=== PATIENT | female | born 1965 | race Caucasian/White ===

== ENCOUNTER 2019-01-06 11:45 | Day surgery (SDC) | payer OTHER ==
[~2019-01-06 11:45] MED LIST: NACL 0.9% 1000 ML 1,000 ML IV SCH
--- NOTE | 2019-01-06 12:49 | Anesthesia Day of Surgery ---
Anesthesia Day of Surgery - Day of Surgery Patient Examined: Yes Patient H&P Reviewed: Yes Patient is NPO: Yes
--- NOTE | 2019-01-06 12:49 | Anesthesia Consultation ---
Anesthesia Consult and Med Hx Date of service: 01/06/19 - Airway Anesthetic Teeth Evaluation: Dentures ROM Head & Neck: Adequate Mental/Hyoid Distance: Adequate Mallampati Class: Class II Intubation Access Assessment: Good - Pulmonary Exam CTA: Yes - Cardiac Exam Cardiac Exam: RRR - Pre-Operative Health Status ASA Pre-Surgery Classification: ASA3 Proposed Anesthetic Plan: MAC - Endocrine Hx Cirrhosis: Yes - Additional Comments Anesthesia Medical History Comments: hx of cirrhosis
[2019-01-06] MEDS ORDERED: XYLOCAINE 1% 20 mL ONE (13:14)
[2019-01-06] MEDS ORDERED: DIPRIVAN 10 MG/ML IV ONE ×3 (13:14)
--- NOTE | 2019-01-06 13:40 | Short Stay Summary ---
Short Stay Documentation Date of service: 01/06/19 Narrative H&P: Ms Maza is a 53 yo female who presents for screening colonoscopy. - History Past Medical History: other (PBC) Past Surgical History: Other (no changes) Social history: no significant social history - Allergies and Medications Current Medications: Allergies No Known Allergies Allergy (Verified 01/05/19 16:24) Home Medications Medication Instructions Recorded Confirmed Last Taken Type Ocaliva 0.5 mg PO DAILY 01/06/19 01/06/19 01/04/19 History Ursodiol 300 mg PO TID 01/06/19 01/06/19 01/04/19 History Active Medications Sodium Chloride (Nacl 0.9% 1000 Ml) 1,000 mls @ 50 mls/hr IV DIRECT RAYSHAWN Last Admin: 01/06/19 13:06 Dose: 50 mls/hr Documented by: - Physical exam General appearance: no acute distress Lungs: Clear to auscultation Heart: Regular rate, Normal S1, Normal S2 Gastrointestinal: normal - Brief post op/procedure progress note Date of procedure: 01/06/19 Pre-op diagnosis: screening for colorectal cancer Post-op diagnosis: other (small colon polyp, diverticulosis) Procedure: colonoscopy with biopsy Anesthesia: MAC Findings: small colon polyp diverticulosis Surgeon: THAI BENNETT Estimated blood loss: minimal Pathology: list (Jar A - transverse colon polyp) Specimen disposition: to lab - Disposition Condition at discharge: Good Disposition: DC-01 TO HOME OR SELFCARE Short Stay Discharge Plan Follow up with: MOIZ GILBERT MD [Primary Care Provider] - 7 Days
--- NOTE | 2019-01-06 13:42 | Operative Report ---
Operative Report Operative Report: Colonoscopy Procedure Note with Biopsy Date of procedure: 01/06/2019 Endoscopist: Augustin Razo Pre-op diagnosis/indication: Screening for colorectal cancer Post-op diagnosis: Small colon polyp removed, diverticulosis MEDICATIONS: MAC COMPLICATIONS: No immediate complications ESTIMATED BLOOD LOSS: Minimal DESCRIPTION OF PROCEDURE: After consent was obtained, the patient was placed in the left lateral decubitis position. The olympus colonoscope was inserted into the rectum under direct vision, and advanced to the cecum and terminal ileum without difficulty. The quality of prep was good. The patient tolerated the procedure well. The patient's vital signs were monitored continuously thr oughout the procedure. FINDINGS: There was an ~2 mm sessile polyp in the transverse colon. The polyp was removed with cold biopsy forceps and retrieved. There were a few scattered diverticula in the left side of the colon. IMPRESSION: 1. Small colon polyp removed with cold biopsy forceps 2. Diverticulosis RECOMMENDATIONS: -follow up pathology -high fiber diet daily -repeat colonoscopy for surveillance in 5 years
[2019-01-06 14:10] VITALS: BP 102/52
--- NOTE | 2019-01-06 15:51 | Post Anesthesia Evaluation ---
- Post Anesthesia Evaluation Patient Participated: Yes Airway Patent: Yes Stable Respiratory Function: Yes Nausea/Vomiting: No Temp > 96.8F: Yes Pain Manageable: Yes Adequeate Hydration: Yes Anesthesia Complications: No Block Receding Appropriately: Not Applicable Patient on Ventilator: No
== END 2019-01-06 11:46 | disposition home or self-care (01) ==
LOC: GIO 11:45
PROVIDERS: ATTEND Internal Medicine Gastroenterology
DX: Z12.11 Encounter for screening for malignant neoplasm of colon (principal); D12.3 Benign neoplasm of transverse colon; K57.30 Diverticulosis of large intestine without perforation or abscess without bleeding; Z79.899 Other long term (current) drug therapy; Z98.890 Other specified postprocedural states
CPT/HCPCS: 45380; 81025; 88305; J2704; J7030